=== PATIENT | female | born 1970 | race Caucasian/White ===

== ENCOUNTER → 2019-09-30 | Day surgery (SDC) | payer OTHER ==
[~2019-09-30] MED LIST: ACTOS15 MG PO; BUSPIRONE HCL5 MG PO; CYMBALTA30 MG PO; DICYCLOMINE HCL20 MG PO; FENTANYL CITRATE/PF 100MCG/2 ML INJ ONE; GLIPIZIDE ER5 MG PO; GLUCAGON FOR INJ 1 MG VIAL ONE; IRON PO; LEVEMIR100 UNIT/1 SC; LEVOTHYROXINE75 MCG PO; LIPITOR20 MG PO; MAGNESIUM OXID400 MG PO; METFORMIN HCL500 MG PO; METOPROLOL SUCC50 MG PO; MIDAZOLAM HCL 2 MG/2 ML VIAL ONE; NAPROXEN250 MG PO; NIACIN500 M2 PO; NORETHINDRONE0.35 MG PO; PANTOPRAZOLE SO40 MG PO; POTASSIUM CHLO10 ME1 PO; PROPOFOL IV EMULSION 10 MG/ML 50 ML VIAL ONE; TIZANIDINE HCL4 MG PO; TRADJENTA5 MG PO; TRAZODONE HCL50 MG PO; TYLENOL #4 PO; VIT C PO; XANAX1 MG PO
--- OUTSIDE RECORDS SUMMARY | 2019-09-30 11:44 | XMS REPORT ---
Author Author [facility] Address Unknown Phone Unavailable Care Team Providers Care Communication Signals Intelligence Name Role Phone Unavailable Unavailable Problems This patient has no known problems. Allergies, Adverse Reactions, Alerts This patient has no known allergies or adverse reactions. Medications This patient has no known medications. Results Test Description Test Time Test Comments Text Results Atomic Results Result Comments SCR MAMM BILATERAL KIERAN CAD DIGITAL 2019-05-06 08:51:35 - SCR MAMM BILATERAL KIERAN CAD DIGITALBILATERAL DIGITAL SCREENING MAMMOGRAM 3D/2D WITH CAD: 04/21/2019CLINICAL: Asymptomatic. Digital breast tomosynthesis was performed in addition to routine CC and MLO views. Current mammographic images were evaluated by either a Gaudena M-Vu or a CrossMedia ImageChecker CAD (computer aided detection system). Comparison is made to exams dated 04/08/2018 mammogram, 06/26 mammogram, 04/06/2015 mammogram, and 11/17/2012 mammogram - [facility]. The tissue of both breasts is heterogeneously dense. This may lower the sensitivity of mammography. There are benign calcifications in both breasts. No suspicious mass, architectural distortion, malignant type calcification, or lymph node abnormality detected. Breast architecture is stable compared to prior exams.IMPRESSION: BENIGNThere is no mammographic evidence of malignancy. Resume annual screening mammography in one year. Tristin Swain M.D. et/penrad:05/06/2019 08:51:35 Attending Technologist: Gay Chacon MM, [facility] Finalta MammographyImaging Technologist: Naheed Louis MM, [facility] Mobile Mammographyletter sent: BIRADS 1-2 Normal Mammogram BI- RADS: 2 Benign
[2019-09-30 13:45] VITALS: BP 121/73
--- NOTE | 2019-10-01 04:13 | Operative Report ---
DATE OF PROCEDURE: 09/30/2019 SURGEON: Austin Rizo MD INDICATIONS FOR EGD: Upper abdominal pain, bloating, excessive belching. MEDICATIONS: The patient was done under MAC, please see anesthesiologist's note. PROCEDURE IN DETAIL: With the patient in left lateral decubitus position, a flexible fiberoptic Olympus gastroscope was introduced into the esophagus under direct visualization without any difficulty. There was some patchy erythema noted in distal esophagus. The scope was then advanced with ease into the stomach. Mucosa overlying the antrum and the body revealed some diffuse erythema and low-grade to moderate edema and biopsies were obtained and sent to stain for H. pylori. Pylorus was of normal contour and shape. It was intubated with ease and the scope was advanced all the way to the second portion of the duodenum. Biopsies were obtained from the proximal second portion and duodenal bulb to rule out sprue. This scope was then withdrawn back into the stomach and retroflexed and mucosa overlying the fundus and cardia appeared to be within normal limits. The scope was then straightened out, it was subsequently withdrawn and patient tolerated procedure well. IMPRESSION: 1. Distal esophagitis. 2. Gastritis, biopsied; biopsies sent to stain for H. pylori. 3. Rule out sprue. PLAN: Follow up histology. Initiate Protonix 40 mg one p.o. a.c. b.i.d. and Carafate 1 g p.o. a.c. t.i.d. and at bedtime. Austin Rizo MD [facility] [place] /[id number] cc: Daryn Gonzales MD
== END | disposition home or self-care (01) ==
LOC: OR 10:54
PROVIDERS: ATTEND Internal Medicine Gastroenterology
DX: K29.70 Gastritis, unspecified, without bleeding (principal); K31.84 Gastroparesis; K20.9 Esophagitis, unspecified; K59.09 Other constipation; K21.9 Gastro-esophageal reflux disease without esophagitis; K58.9 Irritable bowel syndrome, unspecified; D64.9 Anemia, unspecified; E11.9 Type 2 diabetes mellitus without complications; I10 Essential (primary) hypertension; E78.5 Hyperlipidemia, unspecified; E03.9 Hypothyroidism, unspecified; R53.1 Weakness; R42 Dizziness and giddiness; M54.9 Dorsalgia, unspecified; M54.2 Cervicalgia; Z01.810 Encounter for preprocedural cardiovascular examination; Z79.4 Long term (current) use of insulin; Z79.84 Long term (current) use of oral hypoglycemic drugs; Z68.36 Body mass index [BMI] 36.0-36.9, adult
CPT/HCPCS: 36415; 43239; 81025; 82948; 93005; J1610; J2250; J2704; J3010

== ENCOUNTER → 2019-12-16 | Day surgery (SDC) | payer OTHER ==
[~2019-12-16] MED LIST changes: -FENTANYL CITRATE/PF 100MCG/2 ML INJ ONE; +FERROUS SULFAT325 M1 PO; +FLONASE; +FUROSEMIDE40 MG PO; +HYOSCYAMINE 0.125 MG TAB ONE; +LIDOCAINE HCL 2% LOCAL INJ 5 ML SDV VIAL INJ ONE; +LISINOPRIL2.5 MG PO; -MIDAZOLAM HCL 2 MG/2 ML VIAL ONE; +OMEPRAZOLE40 MG PO; +PRO AIR INH; +PROMETHAZINE HC25 M1 PO; +ZYRTEC-D TABLE1 EACH PO
--- NOTE | 2019-12-16 07:10 | NUR ---
SPIRITUAL CARE - Pre-Surgery Assessment: Pt in bed. Pt's mom at bedside. Pt reported supportive attention from family and friends. Intervention: I provided pastoral presence, hospitality, and sympathetic listening. I acquainted pt with availability of manager float while hospitalized. Outcome: Pt expressed appreciation for visit. No need for follow up indicated at this time. LOLLY [facility] Spiritual Care Department O: [phone] Pager: [phone] ([phone] calling from)
[2019-12-16 08:55] VITALS: BP 117/67
[2019-12-16 11:18] LABS: C DIFFICILE TOXIN A&B AMP PROB NEGATIVE (NEGATIVE); WBC,FECAL (FECAL LACTOFERRIN) NEGATIVE (NEGATIVE)
--- NOTE | 2019-12-16 13:41 | Operative Report ---
DATE OF PROCEDURE: 12/16/2019 SURGEON: Austin Rizo MD PROCEDURE: Colonoscopy with polypectomy and biopsies. INDICATIONS FOR COLONOSCOPY: Colorectal cancer screening, chronic diarrhea, intermittent. MEDICATIONS: The patient was done under MAC, please see anesthesiologist's note. PROCEDURE IN DETAIL: With the patient in the left lateral decubitus position, a flexible fiberoptic Olympus colonoscope was inserted into the rectum with ease and advanced all the way to the cecum. Mucosa overlying the cecum appeared to be within normal limits. The ileocecal valve was intubated and the scope was advanced into the terminal ileum. Biopsies were obtained. The scope was then withdrawn back into the colon. It was then withdrawn slowly, a 6 mm sessile polyp was noted in the proximal ascending colon that was removed per snare electrocautery. The rest of the ascending and the transverse grossly appeared to be within normal limits. Patchy mild inflammatory changes were noted in the left colon and the rectum, and random biopsies were obtained. Some diverticular disease was noted in the sigmoid colon. The scope was then retroflexed into the distal rectum and small internal hemorrhoids were noted, none of which was actively bleeding. The scope was then straightened out and it was subsequently withdrawn after securing an adequate stool specimen that was sent for the appropriate stool studies. The patient tolerated the procedure well. IMPRESSION: 1. Ascending colon polyp, removed per snare electrocautery. 2. Mild patchy left-sided colitis. 3. Diverticulosis. 4. Proctitis, mild. 5. Internal hemorrhoids, none actively bleeding. PLAN: Follow up histology. Follow up stool studies. Initiate Bentyl 20 mg 1 p.o. t.i.d. The patient might benefit from a followup colonoscopy in 5 years. Austin Rizo MD [facility] /[id number] cc: Daryn Gonzales MD
== END | disposition home or self-care (01) ==
LOC: OR 05:46
PROVIDERS: ATTEND Internal Medicine Gastroenterology
DX: K51.50 Left sided colitis without complications (principal); D12.2 Benign neoplasm of ascending colon; K57.30 Diverticulosis of large intestine without perforation or abscess without bleeding; K62.89 Other specified diseases of anus and rectum; K59.09 Other constipation; K64.8 Other hemorrhoids; K29.60 Other gastritis without bleeding; K20.9 Esophagitis, unspecified; K21.9 Gastro-esophageal reflux disease without esophagitis; E11.9 Type 2 diabetes mellitus without complications; D64.9 Anemia, unspecified; E03.9 Hypothyroidism, unspecified; I10 Essential (primary) hypertension; J45.909 Unspecified asthma, uncomplicated; E78.5 Hyperlipidemia, unspecified; M54.2 Cervicalgia; F32.9 Major depressive disorder, single episode, unspecified; F41.9 Anxiety disorder, unspecified; Z79.4 Long term (current) use of insulin; Z79.84 Long term (current) use of oral hypoglycemic drugs; Z68.35 Body mass index [BMI] 35.0-35.9, adult
CPT/HCPCS: 36415; 45380; 45385; 82948; 83630; 83993; 87045; 87177; 87328; 87493; J1610; J2001; J2704; 45378